=== PATIENT | female | born 1985 | race African-American/Black ===

== ENCOUNTER 2021-04-02 23:33 | Emergency (ER) | payer OTHER ==
[~2021-04-02] VITALS: Ht 172.7 cm; Wt 77.1 kg
[2021-04-02] MEDS ORDERED: FLAGYL500 MG PO (23:55)
[2021-04-02] MEDS ORDERED: DOXYCYCLINE HY100 MG PO (23:55)
[2021-04-02] MEDS ORDERED: DIFLUCAN150 MG PO (23:57)
[2021-04-03] MEDS ORDERED: CEFTRIAXONE 250 MG VIAL IM ONE
== END 2021-04-03 01:12 | disposition home or self-care (01) ==
LOC: ER 23:50
DX: R10.2 Pelvic and perineal pain (principal); N73.9 Female pelvic inflammatory disease, unspecified
CPT/HCPCS: 99282

== ENCOUNTER 2021-06-24 21:50 | Emergency (ER) | payer MEDICARE ==
[~2021-06-24] VITALS: Ht 167.6 cm; Wt 93.9 kg
[~2021-06-24 21:50] MED LIST: DIFLUCAN150 MG PO; DOXYCYCLINE HY100 MG PO; FLAGYL500 MG PO
[2021-06-24 22:47] LABS: BASOPHILS % 0.1 % (0.0-1.0); EOSINOPHILS # (AUTO) 0.1 (0.0-0.4); EOSINOPHILS % 0.9 % (0.0-6.0); HEMATOCRIT 33.2 % (34.2-44.1); HEMOGLOBIN 8.8 g/dL (12.0-16.0); LYMPHOCYTES # (AUTO) 2.6 (1.0-3.2); LYMPHOCYTES % 28.5 % (18.0-39.1); MEAN CORPUSCULAR HEMOGLOBIN 17.7 pg (28-32); MEAN CORPUSCULAR HGB CONC 26.5 g/dL (31-35); MEAN CORPUSCULAR VOLUME 66.9 fL (81-99); MONOCYTES # (AUTO) 0.7 (0.2-0.8); MONOCYTES % 7.2 % (4.4-11.3); NEUTROPHILS # (AUTO) 5.8 (2.1-6.9); PLATELET COUNT 326 x10e3/uL (140-360); RED BLOOD COUNT 4.96 x10e6/uL (3.6-5.1); RED CELL DISTRIBUTION WIDTH 18.4 % (11.7-14.4)
[2021-06-24 23:05] LABS: ALBUMIN 3.9 g/dL (3.5-5.0); ALBUMIN/GLOBULIN RATIO 1.2 (0.8-2.0); ANION GAP 14.1 mmol/L (8-16); CALCIUM 8.8 mg/dL (8.4-10.2); CREATININE, SERUM 0.87 mg/dL (0.57-1.11); POTASSIUM 3.1 mmol/L (3.5-5.1)
== END 2021-06-25 01:10 | disposition home or self-care (01) ==
LOC: ER 22:13
DX: D64.9 Anemia, unspecified (principal); E87.6 Hypokalemia; R53.1 Weakness
CPT/HCPCS: 36415; 80053; 84702; 85025; 99284

== ENCOUNTER 2021-09-04 22:16 | Emergency (ER) | payer OTHER ==
[~2021-09-04] VITALS: Ht 167.6 cm; Wt 93.9 kg
[2021-09-04 23:36] LABS: BASOPHILS % 0.2 % (0.0-1.0); EOSINOPHILS # (AUTO) 0.1 (0.0-0.4); EOSINOPHILS % 0.6 % (0.0-6.0); HEMATOCRIT 34.3 % (34.2-44.1); LYMPHOCYTES # (AUTO) 3.1 (1.0-3.2); LYMPHOCYTES % 29.5 % (18.0-39.1); MEAN CORPUSCULAR HEMOGLOBIN 17.9 pg (28-32); MEAN CORPUSCULAR HGB CONC 26.2 g/dL (31-35); MEAN CORPUSCULAR VOLUME 68.1 fL (81-99); MONOCYTES # (AUTO) 1.1 (0.2-0.8); MONOCYTES % 10.1 % (4.4-11.3); NEUTROPHILS # (AUTO) 6.3 (2.1-6.9); NEUTROPHILS % 59.4 % (38.7-80.0); PLATELET COUNT 305 x10e3/uL (140-360); RED BLOOD COUNT 5.04 x10e6/uL (3.6-5.1); RED CELL DISTRIBUTION WIDTH 18.6 % (11.7-14.4)
[2021-09-04 23:47] LABS: ALBUMIN 4.3 g/dL (3.5-5.0); ANION GAP 15.9 mmol/L (8-16); CALCIUM 9.8 mg/dL (8.4-10.2); CREATININE, SERUM 1.01 mg/dL (0.57-1.11); POTASSIUM 3.9 mmol/L (3.5-5.1)
[2021-09-05 00:02] LABS: CLARITY,URINE CLOUDY (CLEAR); COLOR,URINE YELLOW (YELLOW)
[2021-09-05 00:03] LABS: BACTERIA,URINE MANY /HPF; EPITHELIAL CELLS,URINE MANY /LPF; KETONES,URINE NEGATIVE (NEGATIVE); LEUKOCYTE ESTERASE ,URINE 1+ (NEGATIVE); NITRITE,URINE NEGATIVE (NEGATIVE); PROTEIN,URINE DIPSTICK NEGATIVE (NEGATIVE); URINE UROBILINOGEN 0.2 mg/dL (0.2 - 1)
== END 2021-09-05 00:19 | disposition home or self-care (01) ==
LOC: ER 23:00
DX: D64.9 Anemia, unspecified (principal); N39.0 Urinary tract infection, site not specified; R50.9 Fever, unspecified
CPT/HCPCS: 36415; 80053; 81001; 81025; 85025; 87086; 99283

== ENCOUNTER 2022-05-19 19:45 | Emergency (ER) | payer OTHER ==
[~2022-05-19] VITALS: Ht 167.6 cm; Wt 93.9 kg
[2022-05-19] MEDS ORDERED: CIPRODEX OTIC7.5 ML OT (20:18)
[2022-05-19 20:31] LABS: BASOPHILS % 0.1 % (0.0-1.0); EOSINOPHILS # (AUTO) 0.1 (0.0-0.4); EOSINOPHILS % 0.7 % (0.0-6.0); HEMATOCRIT 32.6 % (34.2-44.1); HEMOGLOBIN 8.7 g/dL (12.0-16.0); LYMPHOCYTES # (AUTO) 2.4 (1.0-3.2); LYMPHOCYTES % 23.6 % (18.0-39.1); MEAN CORPUSCULAR HGB CONC 26.7 g/dL (31-35); MEAN CORPUSCULAR VOLUME 67.5 fL (81-99); MONOCYTES # (AUTO) 0.8 (0.2-0.8); MONOCYTES % 7.3 % (4.4-11.3); PLATELET COUNT 318 x10e3/uL (140-360); RED BLOOD COUNT 4.83 x10e6/uL (3.6-5.1); RED CELL DISTRIBUTION WIDTH 17.4 % (11.7-14.4)
[2022-05-19] MEDS ORDERED: FERRACTIV IRON1 EACH PO (21:29)
[2022-05-19] MEDS ORDERED: NEOMYCIN-POLYMY10 ML LEFT EAR (21:29)
== END 2022-05-19 21:32 | disposition home or self-care (01) ==
LOC: ER 19:56
DX: H66.92 Otitis media, unspecified, left ear (principal); D64.9 Anemia, unspecified
CPT/HCPCS: 36415; 85025; 99283